=== PATIENT | female | born 1985 | race Caucasian/White ===

== ENCOUNTER 2020-01-26 13:15 | Emergency (ER) | payer SELFPAY ==
[2020-01-26] MEDS ORDERED: SODIUM CHLORIDE 0.9% 1000 ML 1,000 ML IV ONE (13:47)
[2020-01-26 14:40] LABS: Basophils % (Auto) 0.4 % (0.0-1.8); Eosinophils # (Auto) 0.2 K/mm3 (0.0-0.4); Eosinophils % (Auto) 1.9 % (0.0-4.3); Hematocrit 30.2 % (30.3-42.9); Hemoglobin 10.3 gm/dl (10.1-14.3); Lymphocytes # (Auto) 2.2 K/mm3 (1.2-5.4); Lymphocytes % (Auto) 19.5 % (13.4-35.0); Mean Corpuscular HGB Conc 34 % (30-34); Mean Corpuscular Volume 92 fl (79-97); Monocytes # (Auto) 0.5 K/mm3 (0.0-0.8); Monocytes % (Auto) 4.5 % (0.0-7.3); Platelet Count 347 K/mm3 (140-440); Red Blood Count 3.27 M/mm3 (3.65-5.03); Red Cell Distribution Width 13.1 % (13.2-15.2)
[2020-01-26 14:53] LABS: BUN/Creatinine Ratio 20; Blood Urea Nitrogen 12 mg/dL (7-17); Calcium 8.3 mg/dL (8.4-10.2); Hemolysis Index 4
--- NOTE | 2020-01-26 16:40 | Ultrasound Report ---
ULTRASOUND OBSTETRIC INDICATION / CLINICAL INFORMATION: vaginal bleeding. Clinical Gestational Age (GA): 4.6 weeks.days TECHNIQUE: Transabdominal and Transvaginal. COMPARISON: None available. FINDINGS: No definite intrauterine or gestational sac/yolk sac is identified. The endometrium appears thickened, measuring 2.4 cm. Both ovaries appear normal. There is no free fluid. IMPRESSION: No intrauterine or gestational sac identified on the current exam. Recommend correlation wi th hCG values and clinical dating. Follow-up ultrasound should be considered to reevaluate for intrau terine depending on those findings. Signer Name: Constantino Alvarez MD Signed: 01/26/2020 4:36 PM Workstation Name: [id number]
--- NOTE | 2020-01-26 17:52 | Emergency Department Report ---
ED General Adult HPI - General Chief complaint: Vaginal Bleeding Stated complaint: BLEEDING PUI?: No Time Seen by Provider: 01/26/20 14:42 Source: patient Mode of arrival: Wheelchair Limitations: Language Barrier - History of Present Illness Initial comments: This is a 34-year-old female G3, P2 who presents with vaginal bleeding mild pelvic cramping. She was recently diagnosed with by her personal physician 1 week ago. She was approximately 5 weeks at that time. She now has severe amount of vaginal bleeding with clots. Only mild pelvic pain. Her primary physician told her that she may have had a miscarriage. -: Gradual, This morning Severity scale (0 -10): 6 Consistency: constant Improves with: none Worsens with: none Associated Symptoms: other (Vaginal bleeding pelvic pain) - Related Data Previous Rx's Medication Instructions Recorded Last Taken Type HYDROcodone/APAP 5-325 [[place] 2 each PO Q6H PRN #30 tablet 11/18/15 Unknown Rx 5-325 mg TAB] Ibuprofen [Motrin 600 MG tab] 600 mg PO Q6H #30 tablet 11/18/15 Unknown Rx Allergies Allergy/AdvReac Type Severity Reaction Status Date / Time No Known Allergies Allergy Verified 11/17/15 09:56 ED Review of Systems ROS: Stated complaint: BLEEDING Other details as noted in HPI Comment: All other systems reviewed and negative Constitutional: denies: fever, malaise Respiratory: denies: cough Cardiovascular: denies: chest pain Gastrointestinal: denies: abdominal pain ED Past Medical Hx - Past Medical History Previous Medical History?: No Hx Hypertension: No Hx Congestive Heart Failure: No Hx Diabetes: No Hx Deep Vein Thrombosis: No Hx Renal Disease: No Hx Sickle Cell Disease: No Hx Seizures: No Hx Asthma: No Hx COPD: No Hx HIV: No - Surgical History Past Surgical History?: No - Social History Smoking Status: Never Smoker - Medications Home Medications: Home Medications Medication Instructions Recorded Confirmed Last Taken Type HYDROcodone/APAP 5-325 [[place] 2 each PO Q6H PRN #30 tablet 11/18/15 Unknown Rx 5-325 mg TAB] Ibuprofen [Motrin 600 MG tab] 600 mg PO Q6H #30 tablet 11/18/15 Unknown Rx ED Physical Exam - General Limitations: Language Barrier General appearance: alert, in no apparent distress - Head Head exam: Present: atraumatic, normocephalic - Eye Eye exam: Present: normal appearance - ENT ENT exam: Present: mucous membranes moist - Neck Neck exam: Present: normal inspection, full ROM - Respiratory Respiratory exam: Present: normal lung sounds bilaterally. Absent: respiratory distress, wheezes, rales, rhonchi - Cardiovascular Cardiovascular Exam: Present: regular rate, normal rhythm, normal heart sounds. Absent: systolic murmur, diastolic murmur, rubs, gallop - GI/Abdominal GI/Abdominal exam: Present: soft, normal bowel sounds. Absent: distended, tenderness, guarding - Extremities Exam Extremities exam: Present: normal inspection - Neurological Exam Neurological exam: Present: alert, oriented X3 - Psychiatric Psychiatric exam: Present: normal affect, normal mood - Skin Skin exam: Present: warm, dry, intact, normal color. Absent: rash ED Course Vital Signs 01/26/20 13:27 Temperature 99.8 F H Pulse Rate 97 H Respiratory 18 Rate Blood Pressure 89/54 [Right] O2 Sat by Pulse 98 Oximetry ED Medical Decision Making - Lab Data Result diagrams: 01/26/20 14:05 01/26/20 14:05 Laboratory Results - last 24 hr 01/26/20 01/26/20 01/26/20 14:00 14:05 14:05 WBC 11.4 H RBC 3.27 L Hgb 10.3 Hct 30.2 L MCV 92 MCH 32 MCHC 34 RDW 13.1 L Plt Count 347 Lymph % (Auto) 19.5 Bailey % (Auto) 4.5 Eos % (Auto) 1.9 Baso % (Auto) 0.4 Lymph # 2.2 Bailey # 0.5 Eos # 0.2 Baso # 0.0 Seg Neutrophils % 73.7 H Seg Neutrophils # 8.4 H Sodium 138 Potassium 3.7 Chloride 104.8 Carbon Dioxide 21 L Anion Gap 16 BUN 12 Creatinine 0.6 L Estimated GFR > 60 BUN/Creatinine Ratio 20 Glucose 139 H Calcium 8.3 L HCG, Quant Blood Type O POSITIVE Antibody Screen Negative 01/26/20 14:05 WBC RBC Hgb Hct MCV MCH MCHC RDW Plt Count Lymph % (Auto) Bailey % (Auto) Eos % (Auto) Baso % (Auto) Lymph # Bailey # Eos # Baso # Seg Neutrophils % Seg Neutrophils # Sodium Potassium Chloride Carbon Dioxide Anion Gap BUN Creatinine Estimated GFR BUN/Creatinine Ratio Glucose Calcium HCG, Quant 362.4 H Blood Type Antibody Screen - Radiology Data Radiology results: report reviewed Thickened endometrium: No evidence of intrauterine - Medical Decision Making Spontaneous : hCG level below 400. H&H within normal limits. Patient's hypotension resolved with IV fluid therapy. I used in person valve inserter to answer questions provide further education. Patient referred back to her primary care physician. Critical care attestation.: If time is entered above; I have spent that time in minutes in the direct care of this critically ill patient, excluding procedure time. ED Disposition Clinical Impression: Spontaneous miscarriage Disposition: [id number]-01 TO HOME OR SELFCARE Is pt being admited?: No Does the pt Need Aspirin: No Condition: Stable Instructions: Spontaneous Miscarriage (ED) Referrals: PRIMARY CARE, [Primary Care Provider] - 3-5 Days Print Language: URDU
[2020-01-26 17:59] VITALS: BP 114/70
== END 2020-01-26 18:00 | disposition home or self-care (01) ==
LOC: ED 13:15
DX: O03.9 Complete or unspecified spontaneous abortion without complication (principal); Z3A.01 Less than 8 weeks gestation of pregnancy
CPT/HCPCS: 36415; 76801; 76817; 80048; 84702; 85025; 86850; 86900; 86901; 99284; J7030